=== PATIENT | female | born 1950 | race Caucasian/White ===

== ENCOUNTER → 2016-04-22 | Outpatient (CLI) | payer MEDICARE ==
--- NOTE | 2016-04-22 11:30 | MM ---
Reason for exam: follow-up at short interval from prior study. Last mammogram was performed 7 months ago. History: Patient is postmenopausal. Took estrogen for 3 years beginning at age 48. Physical Findings: Nurse did not find any significant physical abnormalities on exam. MG 3D Diag Mammo W/Cad SHELBI Bilateral CC and MLO view(s) were taken. Prior study comparison: October 02, 2015, bilateral MG 3d screening mammo w/cad. September 16, 2014, bilateral MG screening mammo w CAD. The breast tissue is heterogeneously dense. This may lower the sensitivity of mammography. Finding: There are typically benign calcifications. There is a chronic nodularity bilaterally. There is no dominant lesion. No significant changes in finding since October 02, 2015 and September 16, 2014. These results were verbally communicated with the patient and result sheet given to the patient on 04/22/16. ASSESSMENT: Benign, BI-RAD 2 RECOMMENDATION: Return to routine screening mammogram schedule for both breasts. Back on schedule.
== END | disposition home or self-care (01) ==
LOC: RADMAMWWP 09:37
PROVIDERS: ATTEND Family Medicine
DX: R92.8 Other abnormal and inconclusive findings on diagnostic imaging of breast (principal)
CPT/HCPCS: 77051 ×2; G0204; G0279

== ENCOUNTER → 2018-03-28 | Outpatient (CLI) | payer MEDICARE ==
--- NOTE | 2018-03-29 14:28 | MM ---
Reason for exam: screening (asymptomatic). Last mammogram was performed 1 year and 11 months ago. History: Patient is postmenopausal. Took estrogen for 3 years beginning at age 48. Physical Findings: A clinical breast exam by your physician is recommended on an annual basis and results should be correlated with mammographic findings. MG 3D Screening Mammo W/Cad Bilateral CC and MLO view(s) were taken. Prior study comparison: April 22, 2016, bilateral MG 3d diag mammo w/cad SHELBI. October 02, 2015, bilateral MG 3d screening mammo w/cad. The breast tissue is heterogeneously dense. This may lower the sensitivity of mammography. Benign appearing bilateral calcifications. No suspicious abnormality. No significant changes when compared with prior studies. ASSESSMENT: Benign, BI-RAD 2 RECOMMENDATION: Routine screening mammogram of both breasts in 1 year.
== END | disposition home or self-care (01) ==
LOC: RADMAMWWP 08:19
PROVIDERS: ATTEND Family Medicine
DX: Z12.31 Encounter for screening mammogram for malignant neoplasm of breast (principal)
CPT/HCPCS: 77063; 77067

== ENCOUNTER → 2018-09-12 | Outpatient (CLI) | payer MEDICARE ==
[2018-09-12 08:53] VITALS: BP 169/93; PULSE 67; RESP 16; TEMP 97.9; BMI 23.9
--- NOTE | 2018-09-12 09:50 | P.HPOB ---
History of Present Illness H&P Date: 09/12/18 Chief Complaint: The patient is here for her routine gynecologic exam. This is a 67-year-old with an LMP of 2000. The patient is here to establish with the office. The patient states is been about 4 years since her last pelvic exam. She states she is noticed an occasional small discharge in her underwear about 0-1 times per month. She states it can be the size of a pencil eraser. It has a slight color and can be brownish or pinkish. She denies any Clive bleeding. She also denies any cramping. She started noticing this during the past winter. She does not take hormone replacement therapy or any supplements for menopausal symptoms. She has not been sexually active for many years. Review of Systems Her weight has been stable. She denies respiratory, cardiac and G.I. problems. She denies maltreatment or problems with falling. : she denies any significant problems with urinary leakage. 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 History of Any Multi-Drug Resistant Organisms: None Reported Past Surgical History: Tubal Ligation Additional Past Surgical History / Comment(s): D&C. Colonoscopy 2017(4th, next 10yrs). Past Anesthesia/Blood Transfusion Reactions: No Reported Reaction Past Psychological History: No Psychological Hx Reported Smoking Status: Never smoker Past Alcohol Use History: Rare (0-1 per month) Past Drug Use History: None Reported Additional History: She has been since 1968 and is not sexually active. 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 - Past Family History Mother Family Medical History: No Reported History Father Family Medical History: No Reported History Medications and Allergies Home Medications Medication Instructions Recorded Confirmed Type Aspirin [Adult Low Dose Aspirin EC] 0.5 tab PO DAILY 03/14/17 03/14/17 History Calcium Carbonate [Calcium] 600 mg PO DAILY 03/14/17 03/16/17 History Hydrochlorothiazide 12.5 mg PO DAILY 03/14/17 03/16/17 History Lisinopril [Zestril] 5 mg PO DAILY 03/14/17 03/16/17 History Magnesium (Unknown Dose) 0.5 tab PO DAILY 03/14/17 03/16/17 History Multivitamins, Thera [Multivitamin 1 tab PO DAILY 03/14/17 03/16/17 History (formulary)] [place]-3/Dha/Epa/Fish Oil [Fish Oil 1 each PO 09/12/18 History 500 mg Softgel] Allergies Allergy/AdvReac Type Severity Reaction Status Date / Time No Known Allergies Allergy Verified 09/12/18 08:53 Exam Vital Signs Temp Pulse Resp BP Pulse Ox 09/12/18 08:32 97.9 F 67 16 169/93 100 Intake and Output 09/11/18 09/12/18 09/12/18 22:59 06:59 14:59 Other: Weight 65.317 kg Height 5'5", weight 144 pounds, BMI 24.0. This is a well-developed well-nourished white female who is alert and oriented times 3 in no acute distress. HEENT: Within normal limits. NECK: Supple without mass or thyromegaly. CHEST AND LUNGS: Clear to auscultation. HEART: Regular rate and rhythm. BREASTS: Are without mass or discharge. AXILLARY EXAM: Negative for adenopathy. BACK: Negative for CVA tenderness. ABDOMEN: Soft, nontender, without palpable masses. PELVIC EXAM: Normal external genitalia with mild to moderate atrophy. Cervix and vagina appear normal with mild to moderate atrophy. The service is somewhat stenotic secondary to atrophy. There is no unusual discharge. There is no evidence of blood. There is no evidence of prolapse. The uterus is midposition, nongravid size and nontender. There are no palpable adnexal masses or tenderness. RECTAL EXAM: recto vaginal exam is negative for mass or tenderness and is negative for occult blood. EXTREMITIES: Nontender. IMPRESSION: 1. 67-year-old menopausal female with normal gynecologic exam. 2. Recent history of infrequent slight vaginal discharge which can be brown or pink in color. This may represent a small amount of postmenopausal bleeding. Differential diagnosis will include small uterine bleeding, discharge from genital atrophy, small urine discharge, and less likely infection. 3. Elevated blood pressure with history of chronic hypertension. PLAN: 1. Pap smear was performed. I will see if I can review Dr. Hernandez's records to determine if she has had adequate cervical screening. If so, and is today's Pap smear is negative, we will consider discontinuing Pap smear testing. 2. Self breast awareness was discussed with the patient. 3. Screening mammogram was done on 03/28/2018 and was benign. Repeat this in one year. 4. Osteoporosis prevention was discussed. I have stressed the importance of adequate calcium, vitamin D and regular exercise. Recommended amounts of calcium and vitamin D were also discussed. She had a normal bone density test ing in June 2012 per the patient. We will plan on repeating this next year. 5. Pelvic ultrasound will be scheduled to measure the endometrial thickness. If this is 4 mm or less, we will probably follow this conservatively unless she has more obvious postmenopausal bleeding. 6. We discussed her elevated blood pressure. She states she will do home blood pressure checks and follow-up with Dr. Mckinnon for blood pressure elevations. 7. She does get flu shots in the fall. 8.She was advised to return in one year for her annual well woman exam.
--- NOTE | 2018-09-20 10:12 | P.PN ---
Progress Note - Text Progress Note Date: 09/20/18 OUTPATIENT FOLLOW-UP NOTE TEST(S)/RESULTS: Pap smear from 09/12/2018 was negative. Pelvic ultrasound done on 09/19/2018 was benign with normal endometrial thickness. METHOD OF NOTIFICATION: a message with these results was left on the patient's voicemail. PATIENT COMMENTS: DIAGNOSIS: benign ultrasound and negative Pap smear. DISCUSSION: on the message, the patient was instructed to call if she is having increasing symptoms or problems. PLAN: She was advised to return in one year for her annual well woman exam.
== END ==
LOC: WWCWWP 08:24
PROVIDERS: ATTEND Obstetrics & Gynecology
DX: Z53.9 Procedure and treatment not carried out, unspecified reason (principal)

== ENCOUNTER → 2018-09-19 | Outpatient (CLI) | payer MEDICARE ==
--- NOTE | 2018-09-20 08:07 | US ---
EXAMINATION TYPE: US pelvis complete transvag DATE OF EXAM: 09/19/2018 COMPARISON: NONE CLINICAL HISTORY: N95.0 Postmenopausal bleeding; one episode of post menopausal bleeding; TECHNIQUE: Transvaginal (TV) and Transabdominal (TA) . Transabdominal sonographic images of the pel vis were acquired. Transvaginal sonographic images were medically necessary to better assess the fol lowing anatomy: endometrium Date of LMP: 2000 EXAM MEASUREMENTS: Uterus: 7.6 x 5.2 x 2.3 cm Endometrial Stripe: 0.1 cm Right Ovary: 2.9 x 2.2 x 1.1 cm TA US Left Ovary: 2.8 x 1.9 x 1.0 cm TA US 1. Uterus: Anteverted; small peripheral calcifications noted with largest = 0.3 x 0.2 x 0.2cm. 2. Endometrium: thickness is wnl post menopause 3. Right Ovary: wnl 4. Left Ovary: wnl 5. Bilateral Adnexa: wnl 6. Posterior cul-de-sac: wnl IMPRESSION: 1. Endometrial atrophy with the endometrium measuring 0.1 cm. 2. Few uterine calcifications are seen that can be sequela of degenerative uterine leiomyomas and are typically benign.
== END | disposition home or self-care (01) ==
LOC: RADUSWWP 17:04
PROVIDERS: ATTEND Obstetrics & Gynecology
DX: N85.8 Other specified noninflammatory disorders of uterus (principal)
CPT/HCPCS: 76830; 76856

== ENCOUNTER → 2020-02-05 | Outpatient (CLI) | payer MEDICARE ==
[2020-02-05 14:27] VITALS: BP 128/78; PULSE 73; RESP 18; TEMP 98
--- NOTE | 2020-02-05 15:04 | P.HPOB ---
History of Present Illness H&P Date: 02/05/20 Chief Complaint: The patient is here for her routine gynecologic exam and ma mmogram. This is a 69-year-old with an LMP of 2000. The patient is without gynecologic complaints. Last year she would have intermittent slight discharge which could be brownish or pinkish and she had a pelvic ultrasound showing normal endometrial thickness. She states that this has become much less but she very seldomly will notice a slight discharge still. Review of Systems The patient's weight has been stable over the last year. She denies respiratory, cardiac, or G.I. problems. 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 History of Any Multi-Drug Resistant Organisms: None Reported Past Surgical History: Tubal Ligation Additional Past Surgical History / Comment(s): D&C. Colonoscopy 2017(4th, next 10yrs). Past Anesthesia/Blood Transfusion Reactions: No Reported Reaction Past Psychological History: No Psychological Hx Reported Smoking Status: Never smoker Past Alcohol Use History: Rare (0-1 per month) Past Drug Use History: None Reported Additional History: She has been since 1968 and is not sexually active due to her 's stroke. 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 - Past Family History Mother Family Medical History: No Reported History Father Family Medical History: No Reported History Medications and Allergies Home Medications Medication Instructions Recorded Confirmed Type Aspirin [Adult Low Dose Aspirin EC] 0.5 tab PO DAILY 03/14/17 02/05/20 History Calcium Carbonate [Calcium] 600 mg PO DAILY 03/14/17 02/05/20 History Hydrochlorothiazide 12.5 mg PO DAILY 03/14/17 02/05/20 History [hydroCHLOROthiazide] Magnesium (Unknown Dose) 0.5 tab PO DAILY 03/14/17 02/05/20 History Multivitamins, Thera [Multivitamin 1 tab PO DAILY 03/14/17 02/05/20 History (formulary)] lisinopriL [Zestril] 5 mg PO DAILY 03/14/17 02/05/20 History [place]-3/Dha/Epa/Fish Oil [Fish Oil 1 each PO DAILY 09/12/18 02/05/20 History 500 mg Softgel] Allergies Allergy/AdvReac Type Severity Reaction Status Date / Time No Known Allergies Allergy Verified 02/05/20 14:12 Exam Vital Signs Temp Pulse Resp BP Pulse Ox 02/05/20 14:15 98.0 F 73 18 128/78 100 Intake and Output 02/04/20 02/05/20 02/05/20 22:59 06:59 14:59 Other: Weight 65.771 kg Height 5 feet 6 inches, weight 145 pounds, BMI 23.4. This is a well-developed well-nourished white female who is alert and oriented times 3 in no acute distress. HEENT: Within normal limits. NECK: Supple without mass or thyromegaly. CHEST AND LUNGS: Clear to auscultation. HEART: Regular rate and rhythm. BREASTS: Are without mass or discharge. AXILLARY EXAM: Negative for adenopathy. BACK: Negative for CVA tenderness. ABDOMEN: Soft, nontender, without palpable masses. PELVIC EXAM: Normal external genitalia with mild to moderate atrophy. The cervix and vagina appear normal with mild-moderate atrophy. There is no unusual discharge. There is no evidence of prolapse. The uterus is midposition, nongravid size and nontender. There are no palpable adnexal masses or tenderness. RECTAL EXAM: Rectovaginal exam is negative for mass or tenderness and is negative for occult blood. EXTREMITIES: Nontender. IMPRESSION: 1. 69-year-old menopausal female with normal gynecologic exam. PLAN: 1. Pap smears have been discontinued. 2. Self breast awareness was discussed with the patient. 3. Screening mammogram will be done today. 4. Osteoporosis prevention was discussed. I have stressed the importance of adequate calcium, vitamin D and regular exercise. Recommended amounts of calcium and vitamin D were also discussed. Bone density testing is scheduled for early in February. The order slip was given to the patient for this. 5. The patient was advised to return in 1-2 years for her well woman examination. She was also instructed to call if she is having any vaginal bleeding or problems.
--- NOTE | 2020-02-11 11:11 | MM ---
Reason for exam: screening (asymptomatic). Last mammogram was performed 1 year and 10 months ago. History: Patient is postmenopausal. Took estrogen for 3 years beginning at age 48. Physical Findings: A clinical breast exam by your physician is recommended on an annual basis and results should be correlated with mammographic findings. MG 3D Screening Mammo W/Cad Bilateral CC and MLO view(s) were taken. Prior study comparison: March 28, 2018, bilateral MG 3d screening mammo w/cad. April 22, 2016, bilateral MG 3d diag mammo w/cad SHELBI. The breast tissue is heterogeneously dense. This may lower the sensitivity of mammography. Benign appearing bilateral calcifications. No significant changes when compared with prior studies. ASSESSMENT: Benign, BI-RAD 2 RECOMMENDATION: Routine screening mammogram of both breasts in 1 year.
== END | disposition home or self-care (01) ==
LOC: WWCWWP 13:56
PROVIDERS: ATTEND Obstetrics & Gynecology
DX: Z12.31 Encounter for screening mammogram for malignant neoplasm of breast (principal)
CPT/HCPCS: 77063; 77067

== ENCOUNTER → 2020-02-20 | Outpatient (CLI) | payer MEDICARE ==
--- NOTE | 2020-02-20 11:38 | BD ---
EXAMINATION TYPE: Axial Bone Density DATE OF EXAM: 02/20/2020 COMPARISON: 07.04.2012 CLINICAL HISTORY: 69 YR OLD FEMALE....ICD-10 CODE: Z78.0 POST MENOPAUSAL Height: 64.8 Weight: 143 FRAX RISK QUESTIONS: Family History (Parent hip fracture): YES RISK FACTORS HISTORY OF: Family History of Osteoporosis: YES, POSSIBLY FATHER, WITH HIP FX Postmenopausal woman: AT AGE 49 Take estrogen and/or progesterone medications: FOR SHORT TIME...NONE NOW Hyperparathyroidism: NO Adrenal Insufficiency: NO MEDICATIONS: Additional Medications: BP MEDS, CALCIUM PLUS D Additional History: HYPERTENSION, EXAM MEASUREMENTS: Bone mineral densitometry was performed using the [employer] System. Bone mineral density as measured about the Lumbar spine is: ----- L1-L4(G/cm2): 1.036 T Score Values are as follows: ----- L1: -1.2 ----- L2: -1.7 ----- L3: -0.9 ----- L4: -1.2 ----- L1-L4: -1.2 Bone mineral density has: Decreased -2.7% since study of: 07.04.2012 Bone mineral density about the R hip (g/cm2): 0.873 Bone mineral density about the L hip (g/cm2): 0.864 T Score values are as follows: -----R Neck: -0.6 -----L Neck: -1.1 -----R Total: -1.1 -----L Total: -1.1 Bone mineral density has: Decreased -3.9% since study of: 07.04.2012 FRAX%s: THERE IS A 13.9% CHANCE FOR A MAJOR OSTEOPOROTIC FX AND A 2.8% FOR HIP.......PROBABILITY FO R FX IN 10 YRS TIME IMPRESSION: Osteopenia (T Score between -2.5 and -1). There is slightly increased risk of fracture and the patient may be considered for treatment. Re-Screen 2-5 years. NOTE: T-SCORE=SD OF THE YOUNG ADULT MEAN.
== END | disposition home or self-care (01) ==
LOC: RADBDWWP 07:22
PROVIDERS: ATTEND Obstetrics & Gynecology
DX: M85.80 Other specified disorders of bone density and structure, unspecified site (principal)
CPT/HCPCS: 77080

== ENCOUNTER → 2021-03-17 | Outpatient (CLI) | payer MEDICARE ==
[2021-03-17 13:45] VITALS: BP 130/75; PULSE 77; RESP 18; TEMP 98.2
--- NOTE | 2021-03-17 15:11 | P.HPOB ---
History of Present Illness H&P Date: 03/17/21 Chief Complaint: The patient is here for her routine gynecologic exam and ma mmogram. This is a 70-year-old with an LMP of 2000. The patient has had small intermittent brownish discharge from the vagina since 2019. She continues to notice this periodically at least weekly. She states it is never a large amount, but she can feel something coming out. He the brownish discharge is small and it occasionally has a speck of blood in it. She denies any cramping. She is not sexually active and does not insert anything into the vagina. In 2019 she had a pelvic ultrasound which showed normal endometrial thickness. She typically does not have to wear a pad rated she denies vulvar itching. Review of Systems The patient has lost 4 pounds over the last year. She denies respiratory, cardiac, or G.I. problems. 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 History of Any Multi-Drug Resistant Organisms: None Reported Past Surgical History: Tubal Ligation Additional Past Surgical History / Comment(s): D&C. Colonoscopy 2017(4th, next 10yrs). Past Anesthesia/Blood Transfusion Reactions: No Reported Reaction Past Psychological History: No Psychological Hx Reported Smoking Status: Never smoker Past Alcohol Use History: Rare (3 per year) Past Drug Use History: None Reported Additional History: She has been since 1968 and is not sexually active following her 's stroke. 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 - Past Family History Mother Family Medical History: No Reported History Father Family Medical History: No Reported History Medications and Allergies Home Medications Medication Instructions Recorded Confirmed Type Aspirin [Adult Low Dose Aspirin EC] 0.5 tab PO DAILY 03/14/17 03/17/21 History Calcium Carbonate [Calcium] 600 mg PO DAILY 03/14/17 03/17/21 History Hydrochlorothiazide 12.5 mg PO DAILY 03/14/17 03/17/21 History [hydroCHLOROthiazide] Magnesium (Unknown Dose) 0.5 tab PO DAILY 03/14/17 03/17/21 History Multivitamins, Thera [Multivitamin 1 tab PO DAILY 03/14/17 03/17/21 History (formulary)] lisinopriL [Zestril] 5 mg PO DAILY 03/14/17 03/17/21 History [place]-3/Dha/Epa/Fish Oil [Fish Oil 1 each PO DAILY 09/12/18 03/17/21 History 500 mg Softgel] Allergies Allergy/AdvReac Type Severity Reaction Status Date / Time No Known Allergies Allergy Verified 03/17/21 13:40 Exam Vital Signs Temp Pulse Resp BP Pulse Ox 03/17/21 13:41 98.2 F 77 18 130/75 100 Intake and Output 03/17/21 03/17/21 03/17/21 06:59 14:59 22:59 Other: Weight 63.957 kg Height 5 feet 5 inches, weight 141 pounds, BMI 23.5. This is a well-developed well-nourished white female who is alert and oriented times 3 in no acute distress. HEENT: Within normal limits. NECK: Supple without mass or thyromegaly. CHEST AND LUNGS: Clear to auscultation. HEART: Regular rate and rhythm. BREASTS: Are without mass or discharge. AXILLARY EXAM: Negative for adenopathy. BACK: Negative for CVA tenderness. ABDOMEN: Soft, nontender, without palpable masses. PELVIC EXAM: Normal external genitalia with mild to moderate atrophy. Cervix and vagina appear normal with mild to moderate atrophy. There is no unusual discharge. There is no evidence of blood. There is no evidence of prolapse. The uterus is midposition, nongravid size and nontender. There are no palpable adnexal masses or tenderness. RECTAL EXAM: Rectovaginal exam is negative for mass or tenderness and is negative for occult blood. EXTREMITIES: Nontender. IMPRESSION: 1. 70-year-old menopausal female with normal gynecologic exam. 2. 2 year history of intermittent small postmenopausal brownish discharge and, small postmenopausal bleeding. Differential diagnosis will include atrophic genital bleeding, and less likely, some form of endometrial neoplasia. 3. History of osteopenia. PLAN: 1. Pap smears have been discontinued. 2. Self breast awareness was discussed with the patient. We have also discussed symptoms associated with inflammatory breast cancer. 3. Screening mammogram was done today. 4. Pelvic ultrasound will be ordered to reevaluate the endometrial thickness. The order slip was given to the patient for this. 5. Osteoporosis prevention was discussed. I have stressed the importance of adequate calcium, vitamin D and regular exercise. Recommended amounts of calcium and vitamin D were also discussed. We will plan on repeating the bone density testing in 1-2 years. 6. She was advised to return in one year for her annual well woman exam and as needed. She knows she should call she's having worsening bleeding or problems.
--- NOTE | 2021-03-19 10:43 | MM ---
Reason for exam: screening (asymptomatic). Last mammogram was performed 1 year and 1 month ago. History: Patient is postmenopausal. Took estrogen for 3 years beginning at age 48. Physical Findings: A clinical breast exam by your physician is recommended on an annual basis and results should be correlated with mammographic findings. MG 3D Screening Mammo W/Cad Bilateral CC and MLO view(s) were taken. Prior study comparison: February 05, 2020, bilateral MG 3d screening mammo w/cad. March 28, 2018, bilateral MG 3d screening mammo w/cad. The breast tissue is heterogeneously dense. This may lower the sensitivity of mammography. Finding: There are developing fine, regional calcifications in the anterior position of the right breast. New finding since February 05, 2020 and March 28, 2018. ASSESSMENT: Incomplete: need additional imaging evaluation, BI-RAD 0 RECOMMENDATION: Special view mammogram of the right breast. [facility] will attempt to contact patient to return for supplemental views.
== END ==
LOC: WWCWWP 11:54
PROVIDERS: ATTEND Obstetrics & Gynecology
DX: Z12.31 Encounter for screening mammogram for malignant neoplasm of breast (principal); I10 Essential (primary) hypertension; Z87.39 Personal history of other diseases of the musculoskeletal system and connective tissue; Z87.42 Personal history of other diseases of the female genital tract; Z79.899 Other long term (current) drug therapy
CPT/HCPCS: 77063; 77067

== ENCOUNTER → 2021-04-08 | Outpatient (CLI) | payer MEDICARE ==
--- NOTE | 2021-04-08 19:29 | US ---
EXAMINATION TYPE: US pelvis complete transvag DATE OF EXAM: 04/08/2021 COMPARISON: 09/19/2018 CLINICAL HISTORY: 70-year-old female N95.0 PMB. PMB x 2 years that comes and goes with hard labor. TECHNIQUE: Transabdominal sonographic images of the pelvis were acquired. Transvaginal sonographic i mages were medically necessary to better assess the following anatomy: Endometrium Date of LMP: PMB, FINDINGS: EXAM MEASUREMENTS: Uterus: 5.0 x 4.1 x 2.3 cm Endometrial Stripe: 0.1 cm 1. Uterus: Anteverted. The myometrium is heterogeneous with peripheral calcifications. 2. Endometrium: wnl 3. Right Ovary: Obscured by overlying bowel gas 4. Left Ovary: Obscured by overlying bowel gas 5. Bilateral Adnexa: wnl 6. Posterior cul-de-sac: no free fluid IMPRESSION: 1. Thin endometrial stripe estimated at 1 mm. 2. Unable to visualize either ovary. 3. No pelvic free fluid.
--- NOTE | 2021-04-13 09:41 | MM ---
Reason for exam: additional evaluation requested from abnormal screening. Last mammogram was performed 1 month ago. History: Patient is postmenopausal. Took estrogen for 3 years beginning at age 48. Physical Findings: Nurse did not find any significant physical abnormalities on exam. MG 3D Work Up W/Cad RT CC with magnification, LM with magnification, and LM view(s) were taken of the right breast. Prior study comparison: March 17, 2021, bilateral MG 3d screening mammo w/cad. February 05, 2020, bilateral MG 3d screening mammo w/cad. The breast tissue is heterogeneously dense. This may lower the sensitivity of mammography. Anterior microcalcifications are note as pronounced on magnification views. Some calcifications are milk of calcium, some others are round and punctate. 6 month follow up recommended. These results were verbally communicated with the patient and result sheet given to the patient on 04/08/21. ASSESSMENT: Probably benign, BI-RAD 3 RECOMMENDATION: Follow-up diagnostic mammogram of the right breast in 6 months.
== END | disposition home or self-care (01) ==
LOC: RADMAMWWP 12:49
PROVIDERS: ATTEND Obstetrics & Gynecology
DX: R92.0 Mammographic microcalcification found on diagnostic imaging of breast (principal); R92.1 Mammographic calcification found on diagnostic imaging of breast; N95.0 Postmenopausal bleeding; Z78.0 Asymptomatic menopausal state
CPT/HCPCS: 77065; 76856; 76830; G0279; 77061

== ENCOUNTER → 2021-10-15 | Outpatient (CLI) | payer MEDICARE ==
--- NOTE | 2021-10-15 13:16 | MM ---
Reason for Exam: Follow-up at short interval from prior study. Last screening mammogram was performed 7 month(s) ago. Patient History: Menarche at age 12. First Full-Term at age 19. Postmenopausal. Patient has history of breast feeding. Estrogen for 3 years from age 48 until age 51. Risk Values: Kathy 5 year model risk: 1.4%. NCI Lifetime model risk: 3.8%. Prior Study Comparison: 10/02/2015 Bilateral Screening Mammogram, [facility]. 03/28/2018 Bilateral Screening Mammogram, [facility]. 02/05/2020 Bilateral Screening Mammogram, [facility]. 03/17/2021 Bilateral Screening Mammogram, [facility]. 04/08/2021 Right Diagnostic Mammogram, [facility]. Tissue Density: Right: The breast tissue is heterogeneously dense. This may lower the sensitivity of mammography. Findings: Analyzed By CAD. Retroareolar calcifications and nodularity remain unchanged. No new calcifications or suspicious nodules seen. Overall Assessment: Probably benign, BI-RAD 3 Management: Diagnostic Mammogram of both breasts in 6 months. A clinical breast exam by your physician is recommended on an annual basis and results should be correlated with mammographic findings. This exam should not preclude additional follow-up of suspicious palpable abnormalities. Results were given to the patient verbally at the time of exam. Electronically signed and approved by: Tawio Baez M.D. Radiologis
== END | disposition home or self-care (01) ==
LOC: RADMAMWWP 12:48
PROVIDERS: ATTEND Obstetrics & Gynecology
DX: R92.1 Mammographic calcification found on diagnostic imaging of breast (principal); Z78.0 Asymptomatic menopausal state
CPT/HCPCS: 77065; G0279; 77061

== ENCOUNTER → 2022-05-05 | Outpatient (CLI) | payer MEDICARE ==
--- NOTE | 2022-05-05 09:28 | MM ---
Reason for Exam: Follow-up at short interval from prior study. Last mammogram was performed 1 year(s) and 2 month(s) ago. Patient History: Menarche at age 12. First Full-Term at age 19. Postmenopausal. Patient has history of breast feeding. Estrogen for 3 years from age 48 until age 51. Risk Values: Kathy 5 year model risk: 1.4%. NCI Lifetime model risk: 3.6%. Prior Study Comparison: 07/12/2013 Bilateral Screening Mammogram, [facility]. 03/28/2018 Bilateral Screening Mammogram, [facility]. 03/17/2021 Bilateral Screening Mammogram, [facility]. 04/08/2021 Right Diagnostic Mammogram, [facility]. 10/15/2021 Right MG 3D diag mammo w/cad RT, [facility]. Tissue Density: The breast tissue is heterogeneously dense. This may lower the sensitivity of mammography. Findings: Analyzed By CAD. Stable calcifications in the bilateral breasts. No suspicious masses, calcifications or distortions. Overall Assessment: Benign, BI-RAD 2 Management: Screening Mammogram of both breasts in 1 year. A clinical breast exam by your physician is recommended on an annual basis and results should be correlated with mammographic findings. This exam should not preclude additional follow-up of suspicious palpable abnormalities. Results were given to the patient verbally at the time of exam. Electronically signed and approved by: Boby Stanton DO
== END | disposition home or self-care (01) ==
LOC: RADMAMWWP 08:51
PROVIDERS: ATTEND Obstetrics & Gynecology
DX: R92.8 Other abnormal and inconclusive findings on diagnostic imaging of breast (principal); Z78.0 Asymptomatic menopausal state
CPT/HCPCS: 77066; G0279; 77062